=== PATIENT | male | born 1940 | race Caucasian/White ===

== ENCOUNTER → 2016-12-22 | Outpatient (CLI) | payer MEDICARE | END | disposition home or self-care (01) | LOC: PCVCCLINIC 10:00 | PROVIDERS: ATTEND Internal Medicine Cardiovascular Disease | DX: E78.5 Hyperlipidemia, unspecified (principal); I10 Essential (primary) hypertension; I35.0 Nonrheumatic aortic (valve) stenosis; I25.10 Atherosclerotic heart disease of native coronary artery without angina pectoris | CPT/HCPCS: 93005; G0463 ==

== ENCOUNTER → 2017-06-20 | Outpatient (CLI) | payer MEDICARE ==
--- NOTE | 2017-06-20 13:17 | PCVCIMAG ---
APPROVED REPORT Study performed: 06/20/2017 10:03:21 EXAM: Comprehensive 2D, Doppler, and color-flow Echocardiogram Status: routine Other Information Study Quality: Good Indications Aortic Valve Disease Diabetes Hypertension/HDD 2D Dimensions IVSd: 16.27 (7-11mm)LVOT Diam: 21.54 (18-24mm) LVDd: 37.01 mm PWd: 9.10 (7-11mm) LVDs: 16.09 (25-40mm) Left Atrium: 34.23 (27-40mm) Aortic Root: 21.76 mm LV Single Plane 4CH: 69.54 % LV Single Plane 2CH: 60.91 %Sullivan's LVEF: 65.22 % Biplane EF: 63.2 % Volumes Left Atrial Volume (Systole) Single Plane 4CH: 64.50 mLSingle Plane 2CH: 76.70 mL LA ESV Index: 44.00 mL/m2 Aortic Valve AoV Peak Berry.: 4.81 m/s AO Peak Gr.: 102.22 mmHgLVOT Max P.89 mmHg AO Mean Gr.: 55.16 mmHgLVOT Mean P.58 mmHg AO V2 Mean: 3.44 m/sLVOT Max V: 1.11 m/s AO V2 VTI: 115.13 cm CHERYL (VTI): 0.85 [id number] V1 VTI: 26.97 cm CHERYL Vmax: 0.84 cm2 AI Vmax: 2.67 m/s AI [place]: 1.30 m/s2 AI PHT: 604.94 ms Mitral Valve E/A Ratio: 0.8 MV Decel. Time: 298.46 ms MV E Max Berry.: 0.86 m/s MV A Berry.: 1.06 m/s MV PHT: 86.55 ms IVRT: 103.81 ms TDI E/Lateral E': 17.20E/Medial E': 21.50 Pulmonary Valve PV Peak Berry.: 1.00 m/sPV Peak Gr.: 4.00 mmHg Pulmonary Vein P Vein S: 0.57 m/sP Vein A: 0.45 m/s P Vein D: 0.45 m/sP Vein A Dur.: 124.6 msec P Vein S/D Ratio: 1.27 Tricuspid Valve TR Peak Berry.: 2.34 m/s TR Peak Gr.: 21.87 mmHg TV Vmax: 0.82 m/s Left Ventricle Left ventricle is grossly normal size. A mild gradient is seen throughout the LV cavity with a maximal velocity of 1.35m/s and gradient of 7.4mmHg. There is normal LV segmental wall motion. LVH with Asymetric septal hypertrophy. Left ventricular systolic function is normal. LVEF is 60-65%. Mild diastolic dysfunction is present (impaired relaxation pattern). Right Ventricle The right ventricle is normal size. The right ventricular systolic function is normal. Atria Left atrium is moderately dilated. The right atrium size is normal. Aortic Valve Aortic valve is trileaflet. Aortic valve leaflets are severelysclerotic with severely decreased opening. Mild aortic regurgitation. Severe aortic stenosis. Highest mean aortic valve gradient is 55mmHg. Peak aortic valve gradient is 92mmHg. Calculated CHERYL by the continuity equation is 0.8cm2. Mitral Valve Moderate mitral annular calcification. Trace to mild mitral regurgitation. No evidence of mitral valve stenosis. Tricuspid Valve The tricuspid valve is normal in structure. Mild tricuspid regurgitation with a PA pressure of 29mmHg.. Pulmonic Valve The pulmonary valve is normal in structure. There is no pulmonic valvular regurgitation. Great Vessels The aortic root is normal in size. The ascending aorta is normal in size. IVC is normal in size and collapses with >50% inspiration Pericardium There is no pericardial effusion. There is no pleural effusion. <Conclusion> Left ventricle is grossly normal size. A mild gradient is seen throughout the LV cavity with a maximal velocity of 1.35m/s and gradient of 7.4mmHg. LVH with Asymetric septal hypertrophy. LVEF is 60-65%. Mild diastolic dysfunction is present (impaired relaxation pattern). The right ventricle is normal size. Left atrium is moderately dilated. The right atrium size is normal. Aortic valve is trileaflet. Aortic valve leaflets are severelysclerotic with severely decreased opening. Mild aortic regurgitation. Severe aortic stenosis. Highest mean aortic valve gradient is 55mmHg. Peak aortic valve gradient is 92mmHg. Calculated CHERYL by the continuity equation is 0.8cm2. Mild tricuspid regurgitation with a PA pressure of 29mmHg.. There is no pericardial effusion.
== END | disposition home or self-care (01) ==
LOC: PCVCIMAG 09:51
PROVIDERS: ATTEND Internal Medicine Cardiovascular Disease
DX: I08.3 Combined rheumatic disorders of mitral, aortic and tricuspid valves (principal); I25.10 Atherosclerotic heart disease of native coronary artery without angina pectoris; I44.0 Atrioventricular block, first degree; E78.5 Hyperlipidemia, unspecified; I12.9 Hypertensive chronic kidney disease with stage 1 through stage 4 chronic kidney disease, or unspecified chronic kidney disease; N18.9 Chronic kidney disease, unspecified; E11.22 Type 2 diabetes mellitus with diabetic chronic kidney disease; Z94.0 Kidney transplant status; Z79.82 Long term (current) use of aspirin; Z87.891 Personal history of nicotine dependence
CPT/HCPCS: 80061; 93005; 93306; G0463

== ENCOUNTER → 2018-03-07 | Outpatient (CLI) | payer MEDICARE | END | disposition home or self-care (01) | LOC: PCVCCLINIC 15:41 | DX: I25.10 Atherosclerotic heart disease of native coronary artery without angina pectoris (principal); I10 Essential (primary) hypertension; E11.9 Type 2 diabetes mellitus without complications; E78.00 Pure hypercholesterolemia, unspecified; I35.0 Nonrheumatic aortic (valve) stenosis; I44.2 Atrioventricular block, complete; R94.31 Abnormal electrocardiogram [ECG] [EKG]; Z95.2 Presence of prosthetic heart valve; Z95.0 Presence of cardiac pacemaker; Z87.891 Personal history of nicotine dependence; Z79.82 Long term (current) use of aspirin; Z79.899 Other long term (current) drug therapy | CPT/HCPCS: 80061; 93005; G0463 ==

== ENCOUNTER → 2018-05-28 | Outpatient (CLI) | payer MEDICARE | END | disposition home or self-care (01) | LOC: PCVCCLINIC 13:36 | DX: I25.10 Atherosclerotic heart disease of native coronary artery without angina pectoris (principal); I35.0 Nonrheumatic aortic (valve) stenosis; I10 Essential (primary) hypertension; E78.5 Hyperlipidemia, unspecified; E11.9 Type 2 diabetes mellitus without complications; E78.00 Pure hypercholesterolemia, unspecified; Z79.82 Long term (current) use of aspirin; Z79.899 Other long term (current) drug therapy | CPT/HCPCS: 80061; 93005; G0463 ==

== ENCOUNTER → 2018-06-06 | Outpatient (CLI) | payer MEDICARE ==
[~2018-06-06] MED LIST: REGADENOSON 0.4 MG/5 ML DISP.SYRIN. IV
== END | disposition home or self-care (01) ==
LOC: PCVCIMAG 08:38
DX: I08.8 Other rheumatic multiple valve diseases (principal); I25.10 Atherosclerotic heart disease of native coronary artery without angina pectoris; I10 Essential (primary) hypertension; E11.9 Type 2 diabetes mellitus without complications; R60.9 Edema, unspecified; R06.09 Other forms of dyspnea; R53.83 Other fatigue; Z87.891 Personal history of nicotine dependence
CPT/HCPCS: 78452; 93017; 93306; A9500; J2785

== ENCOUNTER → 2018-07-31 | Outpatient (CLI) | payer MEDICARE | END | disposition home or self-care (01) | LOC: PCVCCLINIC 13:33 | PROVIDERS: ATTEND Internal Medicine Cardiovascular Disease | DX: I25.10 Atherosclerotic heart disease of native coronary artery without angina pectoris (principal); E78.00 Pure hypercholesterolemia, unspecified; I35.0 Nonrheumatic aortic (valve) stenosis; I12.9 Hypertensive chronic kidney disease with stage 1 through stage 4 chronic kidney disease, or unspecified chronic kidney disease; E11.22 Type 2 diabetes mellitus with diabetic chronic kidney disease; N18.9 Chronic kidney disease, unspecified; I49.5 Sick sinus syndrome; Z95.0 Presence of cardiac pacemaker; Z79.82 Long term (current) use of aspirin; Z79.899 Other long term (current) drug therapy | CPT/HCPCS: 93005; G0463 ==

== ENCOUNTER → 2019-08-12 | Outpatient (CLI) | payer MEDICARE | END | disposition home or self-care (01) | LOC: PCVCCLINIC 10:30 | PROVIDERS: ATTEND Internal Medicine Cardiovascular Disease | DX: I25.10 Atherosclerotic heart disease of native coronary artery without angina pectoris (principal); I35.0 Nonrheumatic aortic (valve) stenosis; I10 Essential (primary) hypertension; E78.00 Pure hypercholesterolemia, unspecified; E11.9 Type 2 diabetes mellitus without complications; Z95.2 Presence of prosthetic heart valve; Z95.0 Presence of cardiac pacemaker | CPT/HCPCS: 36415; 80061; 93005; 93280; G0463 ==

== ENCOUNTER → 2019-08-23 | Outpatient (CLI) | payer MEDICARE ==
--- NOTE | 2019-08-27 16:11 | PCVCIMAG ---
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 Aortic valve replacement 2D Dimensions IVSd: 17.59 (7-11mm)LVOT Diam: 29.33 (18-24mm) LVDd: 30.46 mm PWd: 16.92 (7-11mm)Ascending Ao: 36.16 (22-36mm) LVDs: 22.62 (25-40mm) Left Atrium: 46.84 (27-40mm) Aortic Root: 32.93 mm LV Single Plane 4CH: 54.68 % LV Single Plane 2CH: 48.71 % Biplane EF: 51.9 % Volumes Left Atrial Volume (Systole) Single Plane 4CH: 93.36 mLSingle Plane 2CH: 71.49 mL LA ESV Index: 45.00 mL/m2 Aortic Valve AoV Peak Berry.: 1.86 m/s AO Peak Gr.: 13.83 mmHgLVOT Max P.18 mmHg AO Mean Gr.: 6.72 mmHgLVOT Mean P.32 mmHg AO V2 Mean: 1.20 m/sLVOT Max V: 1.02 m/s AO V2 VTI: 36.16 cmLVOT Mean V: 0.73 m/s CHERYL (VTI): 3.76 [id number] V1 VTI: 20.16 cm CHERYL Vmax: 3.71 cm2 SV (LVOT): 136.10 mL Mitral Valve E/A Ratio: 0.9 MV Decel. Time: 510.21 ms MV E Max Berry.: 0.80 m/s MV A Berry.: 0.94 m/s IVRT: 131.49 ms Pulmonary Valve PV Peak Berry.: 0.85 m/sPV Peak Gr.: 2.92 mmHg Pulmonary Vein P Vein S: 0.21 m/sP Vein A: 0.29 m/s P Vein D: 0.29 m/sP Vein A Dur.: 131.5 msec P Vein S/D Ratio: 0.72 Tricuspid Valve TR Peak Berry.: 2.24 m/s TR Peak Gr.: 20.01 mmHg Left Ventricle The left ventricle is normal size. There is normal LV segmental wall motion. Moderate to severe concentric left ventricular hypertrophy. Left ventricular systolic function is normal. The left ventricular ejection fraction is within the normal range. LVEF is 55%. Grade I - abnormal relaxation pattern. Right Ventricle The right ventricle is normal size. The right ventricular systolic function is normal. Pacemaker lead is present in the right ventricle. Atria Left atrium is moderately dilated. Right atrium is mildly dilated. Pacemaker lead is present in the right atrium. Aortic Valve The aortic valve is normal in structure. No aortic regurgitation is present. There is no aortic valvular stenosis. Mitral Valve Moderate posterior mitral annular calcification. Trace mitral regurgitation. No evidence of mitral valve stenosis. Tricuspid Valve The tricuspid valve is normal in structure. Mild tricuspid regurgitation with PAP of 27 mmHg. Pulmonic Valve The pulmonary valve is normal in structure. There is no pulmonic valvular regurgitation. Great Vessels The aortic root is normal in size. IVC is normal in size and collapses >50% with inspiration. Pericardium There is no pericardial effusion. There is no pleural effusion. <Conclusion> The left ventricle is normal size. Moderate to severe concentric left ventricular hypertrophy. LVEF is 55%. Grade I - abnormal relaxation pattern. The right ventricle is normal size. Pacemaker lead is present in the right ventricle. Left atrium is moderately dilated. Right atrium is mildly dilated. Pacemaker lead is present in the right atrium. The aortic valve is normal in structure. Trace mitral regurgitation. Mild tricuspid regurgitation with PAP of 27 mmHg. The aortic root is normal in size. There is no pericardial effusion.
== END | disposition home or self-care (01) ==
LOC: PCVCIMAG 13:10
PROVIDERS: ATTEND Internal Medicine Cardiovascular Disease
DX: I08.1 Rheumatic disorders of both mitral and tricuspid valves (principal); I25.10 Atherosclerotic heart disease of native coronary artery without angina pectoris; I10 Essential (primary) hypertension; E11.9 Type 2 diabetes mellitus without complications; Z95.0 Presence of cardiac pacemaker; Z95.2 Presence of prosthetic heart valve; Z87.891 Personal history of nicotine dependence
CPT/HCPCS: 93306